=== PATIENT | male | born 1960 ===

== ENCOUNTER 2020-09-01 06:27 | Day surgery (SDC) | payer OTHER ==
[~2020-09-01 06:27] MED LIST: TAMS0.4C PO; VASOTEC20 M1 PO
== END 2020-09-01 16:50 | disposition home or self-care (01) ==
LOC: CIR.AMB 06:27
PROVIDERS: ATTEND Orthopaedic Surgery Hand Surgery
DX: S62.002K Unspecified fracture of navicular [scaphoid] bone of left wrist, subsequent encounter for fracture with nonunion (principal); S62.002P Unspecified fracture of navicular [scaphoid] bone of left wrist, subsequent encounter for fracture with malunion; Z20.828 Contact with and (suspected) exposure to other viral communicable diseases